=== PATIENT | female | born 1935 | race Caucasian/White ===

== ENCOUNTER 2017-08-22 16:04 | Emergency (ER) | payer MEDICARE, MEDICAID ==
[~2017-08-22] VITALS: Ht 157.5 cm; Wt 56.7 kg
[2017-08-22] MEDS ORDERED: ASPIRIN81 MG ORAL (16:22)
[2017-08-22] MEDS ORDERED: AMLODIPINE BESYL5 MG ORAL (16:22)
[2017-08-22 16:25] VITALS: BP 163/81
[2017-08-22 17:28] VITALS: BP 134/63
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
[2017-08-22] MEDS ORDERED: TRAMADOL HCL50 MG ORAL (18:23)
[2017-08-22] MEDS ORDERED: IBUPROFEN600 MG ORAL (18:23)
[2017-08-22 18:37] VITALS: BP 138/69
--- NOTE | 2017-08-24 17:06 | Cardiology Report ---
APPROVED REPORT EKG Measurement Heart [id number] IN [id number] Normal sinus rhythm Nonspecific ST abnormality Abnormal ECG
--- NOTE | 2017-08-25 10:39 | Diagnostic Imaging Report ---
Indication: Trauma Technique: XRAY CHEST 2V Comparison: 03/30/2009 Findings: Heart size and mediastinal contours are within normal limits given technique and stable when compared with prior exam. There is no focal consolidation, pneumothorax or pleural effusion. Osseous structures demonstrate no acute abnormality. Impression: No radiographic evidence of acute cardiopulmonary disease.
== END 2017-08-22 18:35 | disposition home or self-care (01) ==
LOC: EMR 16:40
DX: S20.211A Contusion of right front wall of thorax, initial encounter (principal); V43.51XA Car driver injured in collision with sport utility vehicle in traffic accident, initial encounter; Y92.414 Local residential or business street as the place of occurrence of the external cause; Z88.0 Allergy status to penicillin; Z88.2 Allergy status to sulfonamides; I10 Essential (primary) hypertension
CPT/HCPCS: 71020; 93005; 99284